=== PATIENT | female | born 1965 | race Caucasian/White ===

== ENCOUNTER 2024-05-30 11:19 | Emergency (ER) | payer MEDICARE ==
[2024-05-30] MEDS ORDERED: Bacitracin Oint 1 GM U/D Packet TOP ONE (11:43)
[2024-05-30] MEDS: Diphtheria,Pertussis(Acell),Tetanus Vaccine 0.5 ML Syringe IM ONE (12:06)
== END 2024-05-30 14:06 | disposition home or self-care (01) ==
LOC: FB.ED 11:19
DX: S52.125A Nondisplaced fracture of head of left radius, initial encounter for closed fracture (principal); S60.222A Contusion of left hand, initial encounter; S50.312A Abrasion of left elbow, initial encounter; S80.212A Abrasion, left knee, initial encounter; Z79.899 Other long term (current) drug therapy; W10.1XXA Fall (on)(from) sidewalk curb, initial encounter
CPT/HCPCS: 73080-LT; 73130-LT; 73562-LT; 90471; 90715; 99284-25

== ENCOUNTER 2024-11-02 18:38 | Inpatient (IN) | payer MEDICARE, OTHER ==
[2024-11-02] MEDS ORDERED: Naloxone 0.4 MG/ML SDV IVPUSH PRN (18:59)
[2024-11-02 19:20] LABS: BASOPHILS ABSOLUTE AUTO 0.1 x10-3/uL (0.0-0.1); BASOPHILS PERCENT AUTO 0.8 % (0.2-1.5); EOSINOPHILS PERCENT AUTO 0.2 % (0.6-8.1); HEMATOCRIT 33.3 % (34.2-48.2); HEMOGLOBIN 10.7 g/dL (11.4-15.5); LYMPHOCYTES ABSOLUTE AUTO 1.3 x10-3/uL (1.0-4.4); LYMPHOCYTES PERCENT AUTO 12.5 % (18.4-52.1); MEAN CORPUSCULAR HEMOGLOBIN 26.3 pg (23.9-33.9); MEAN CORPUSCULAR HGB CONC 32.1 g/dL (31.9-34.8); MEAN CORPUSCULAR VOLUME 81.7 fL (76.7-100.5); MEAN PLATELET VOLUME 8.2 fL (7.1-12.4); MONOCYTES ABSOLUTE AUTO 0.6 x10-3/uL (0.3-1.0); MONOCYTES PERCENT AUTO 5.5 % (4.4-15.7); NEUTROPHILS ABSOLUTE AUTO 8.6 x10-3/uL (1.5-6.3); PLATELET COUNT,PLT 382 x10(3)uL (151-488); RED CELL DISTRIBUTION WIDTH 17.2 % (12.3-16.5); WHITE BLOOD CELL COUNT,WBC 10.5 x10-3/uL (3.0-10.3)
[2024-11-02 19:23] LABS: BLOOD UREA NITROGEN,BUN 18 mg/dL (7-18); CALCIUM 8.8 mg/dL (8.6-10.2); CARBON DIOXIDE,CO2 24 mmol/L (21-32); CHLORIDE,CL 106 mmol/L (100-110); ESTIMATED GFR 64 mL/min (>60); GLUCOSE RANDOM 160 mg/dL (80-116); POTASSIUM,K 3.8 mmol/L (3.5-5.3); SODIUM,NA 143 mmol/L (135-145)
[2024-11-02 19:28] LABS: RED BLOOD CELL COUNT 4.07 x10(6)uL (3.60-5.20)
[2024-11-02 19:29] LABS: A/G RATIO 1.1; ALANINE AMINOTRANSFERASE,ALT 14 U/L (12-36); ALKALINE PHOSPHATASE 189 IU/L (56-112); ASPARTATE AMNIOTRANSFERASE,AST 11 IU/L (5-25); BILIRUBIN TOTAL 0.4 mg/dL (0.1-1.3); MAGNESIUM 2.1 mg/dL (1.8-2.5); PROTEIN TOTAL,TP 7.6 g/dL (6.0-8.0)
[2024-11-02 19:34] LABS: C-REACTIVE PROTEIN 0.6 mg/dL (<0.50); TROPONIN I 9.3 pg/mL (4.0-60.3)
[2024-11-02] MEDS: Morphine 2 MG/ML SYRINGE IVPUSH ONE (19:35)
[2024-11-02] MEDS: Ondansetron 4 MG/2 ML SDV IVPUSH ONE (19:36)
[2024-11-02] MEDS: Sodium Chloride 0.9% 1,000 ML IV SCH (19:40)
[2024-11-02 19:53] LABS: BASE EXCESS VENOUS,POC -3 mmol/L (-2 - 3+); PCO2 VENOUS,POC 36 mmHg (41-51); PH VENOUS,POC 7.39 pH Units (7.32-7.43)
[2024-11-02 20:18] LABS: BILIRUBIN,URINE NEGATIVE (NEGATIVE); GLUCOSE,URINE NORMAL (NORMAL); KETONES,URINE 15 mg/dL (NEGATIVE); LEUKOCYTE ESTERASE,URINE LARGE (NEGATIVE); NITRITE,URINE POSITIVE (NEGATIVE); OCCULT BLOOD,URINE LARGE (NEGATIVE); PROTEIN,URINE 500 mg/dL (NEGATIVE); UROBILINOGEN,URINE NORMAL (NEGATIVE)
[2024-11-02 20:21] LABS: INFLUENZA A NAA NEGATIVE (NEGATIVE); INFLUENZA B NAA NEGATIVE (NEGATIVE)
[2024-11-02 20:21] LABS: COLOR,URINE RED (YELLOW)
[2024-11-02 20:27] LABS: CORONAVIRUS COVID-19 NAA NEGATIVE (NEGATIVE)
[2024-11-02 20:28] LABS: APPEARANCE,URINE CLOUDY (CLEAR)
[2024-11-02 20:31] LABS: BACTERIA,URINE MODERATE (NS); RBC,URINE PACKED (0-5); SQUAMOUS EPITHELIAL CELLS,UR MODERATE (NS,R,O)
[2024-11-02] MEDS: Sodium Chloride 0.9% 1,000 ML IV ONE (20:38)
[2024-11-02] MEDS ORDERED: Acetaminophen 325 MG Tab PO PRN (22:16)
[2024-11-02] MEDS ORDERED: Ondansetron 4 MG/2 ML SDV IV PRN (22:16)
[2024-11-02] MEDS: Morphine 2 MG/ML SYRINGE IVPUSH PRN (23:17)
[2024-11-02] MEDS: cefTRIAXone 2 GM Vial IVPUSH SCH (23:26)
[2024-11-02] MEDS: Doxycycline 100 MG in Sodium Chloride 0.9% 100 ML IV SCH (23:30)
[2024-11-03] MEDS: Pantoprazole 40 MG Vial IVPUSH SCH (00:31)
[2024-11-03] MEDS: Diazepam 2 MG Tab PO PRN (00:31)
[2024-11-03] MEDS: Sodium Chloride 0.9% 10 ML Syringe FLUSH PRN (00:37)
[2024-11-03] MEDS: oxyCODONE 5 MG Tab PO PRN (05:11)
[2024-11-03 06:35] LABS: BASOPHILS ABSOLUTE AUTO 0.1 x10-3/uL (0.0-0.1); EOSINOPHILS ABSOLUTE AUTO 0.1 x10-3/uL (0.0-0.8); EOSINOPHILS PERCENT AUTO 1.4 % (0.6-8.1); HEMATOCRIT 29.6 % (34.2-48.2); HEMOGLOBIN 9.6 g/dL (11.4-15.5); LYMPHOCYTES ABSOLUTE AUTO 2.6 x10-3/uL (1.0-4.4); LYMPHOCYTES PERCENT AUTO 27.2 % (18.4-52.1); MEAN CORPUSCULAR HEMOGLOBIN 26.6 pg (23.9-33.9); MEAN CORPUSCULAR HGB CONC 32.4 g/dL (31.9-34.8); MONOCYTES ABSOLUTE AUTO 0.8 x10-3/uL (0.3-1.0); MONOCYTES PERCENT AUTO 8.3 % (4.4-15.7); NEUTROPHILS ABSOLUTE AUTO 5.9 x10-3/uL (1.5-6.3); NEUTROPHILS PERCENT AUTO 62.1 % (30.8-76.2); PLATELET COUNT,PLT 321 x10(3)uL (151-488); WHITE BLOOD CELL COUNT,WBC 9.4 x10-3/uL (3.0-10.3)
[2024-11-03 06:40] LABS: BLOOD UREA NITROGEN,BUN 11 mg/dL (7-18); BUN/CREATININE RATIO 13.8 (9-20); CALCIUM 8.2 mg/dL (8.6-10.2); CARBON DIOXIDE,CO2 24 mmol/L (21-32); CHLORIDE,CL 108 mmol/L (100-110); CREATININE 0.8 mg/dL (0.55-1.02); EST CRCL DRUG DOSING (CG) 71.81 mL/min; ESTIMATED GFR 84 mL/min (>60); GLUCOSE RANDOM 118 mg/dL (80-116); POTASSIUM,K 3.9 mmol/L (3.5-5.3); SODIUM,NA 142 mmol/L (135-145)
[2024-11-03 06:43] LABS: RED BLOOD CELL COUNT 3.61 x10(6)uL (3.60-5.20)
[2024-11-03] MEDS ORDERED: Celecoxib 100 MG Cap PO PRN (09:10)
[2024-11-03] MEDS ORDERED: Carboxymethylcellulose Sodium 0.5% Ophth Soln 15 ML Bottle EYEBOTH PRN (09:10)
[2024-11-03] MEDS ORDERED: Non-Formulary Medication 1 Each (Lisinopril [Lisinopril] 40 MG Tablet) PO SCH (09:15)
[2024-11-03] MEDS ORDERED: tiZANidine 4 MG Tab PO PRN (09:21)
[2024-11-03] MEDS ORDERED: Diazepam 5 MG Tab PO PRN (09:45)
[2024-11-03] MEDS: Lisinopril 20 MG Tab PO SCH (09:58)
[2024-11-03] MEDS: Carbidopa/Levodopa 25-100 MG Tab PO SCH (09:58)
[2024-11-03] MEDS: atorvaSTATin 40 MG Tab PO SCH (10:20)
[2024-11-03] MEDS: Pantoprazole 40 MG Tab.CR PO SCH (10:20)
[2024-11-03] MEDS: amLODIPine 5 MG Tab PO SCH (10:21)
[2024-11-03] MEDS ORDERED: Carbidopa/Levodopa 25-100 MG Tab PO SCH (12:00)
[2024-11-03] MEDS ORDERED: traZODone 50 MG Tab PO SCH (21:00)
[2024-11-03] MEDS ORDERED: atorvaSTATin 40 MG Tab PO SCH (21:00)
[2024-11-04] MEDS ORDERED: Cyanocobalamin (Vitamin B12) 1,000 MCG Tab PO SCH (09:00)
== END 2024-11-03 12:55 | disposition home or self-care (01) | DRG 57 ==
LOC: FB.ED 18:38 → FB.MS 21:50
PROVIDERS: ADMIT Emergency Medicine; ATTEND Family Medicine
DX: G20.B1 Parkinson's disease with dyskinesia, without mention of fluctuations (principal); M62.838 Other muscle spasm; R26.2 Difficulty in walking, not elsewhere classified; R53.81 Other malaise; R26.89 Other abnormalities of gait and mobility; I10 Essential (primary) hypertension; H54.7 Unspecified visual loss; K21.9 Gastro-esophageal reflux disease without esophagitis; F32.A Depression, unspecified; F41.9 Anxiety disorder, unspecified; E86.0 Dehydration; S42.202D Unspecified fracture of upper end of left humerus, subsequent encounter for fracture with routine healing; M19.91 Primary osteoarthritis, unspecified site; Z98.890 Other specified postprocedural states; Z79.899 Other long term (current) drug therapy
CPT/HCPCS: 0240U; 36415; 51702; 71045; 80048; 80053; 81001; 83605; 83735; 84484; 85025; 86140; 87040; 87077; 87086; 87088; 87186; 93005; 93010; 96361; 96374; 96375; 99285; 99285-25; A9270-GY; J0696; J2270; J2405; J2470; J3490; J7030

== ENCOUNTER 2025-01-07 15:24 | Emergency (ER) | payer MEDICARE, OTHER ==
[2025-01-07] MEDS: Aspirin 81 MG Tab.Chew PO ONE (15:52)
[2025-01-07] MEDS: Metoprolol Tartrate 5 MG/5 ML SDV IVPUSH ONE ×2 (15:53→16:30)
[2025-01-07 15:59] LABS: BASOPHILS ABSOLUTE AUTO 0.1 x10-3/uL (0.0-0.1); BASOPHILS PERCENT AUTO 0.6 % (0.2-1.5); EOSINOPHILS ABSOLUTE AUTO 0.1 x10-3/uL (0.0-0.8); EOSINOPHILS PERCENT AUTO 0.7 % (0.6-8.1); HEMATOCRIT 34.2 % (34.2-48.2); LYMPHOCYTES ABSOLUTE AUTO 2.7 x10-3/uL (1.0-4.4); LYMPHOCYTES PERCENT AUTO 25.2 % (18.4-52.1); MEAN CORPUSCULAR HGB CONC 32.2 g/dL (31.9-34.8); MEAN CORPUSCULAR VOLUME 77.8 fL (76.7-100.5); MEAN PLATELET VOLUME 7.8 fL (7.1-12.4); MONOCYTES ABSOLUTE AUTO 0.8 x10-3/uL (0.3-1.0); NEUTROPHILS ABSOLUTE AUTO 7.2 x10-3/uL (1.5-6.3); NEUTROPHILS PERCENT AUTO 66.5 % (30.8-76.2); PLATELET COUNT,PLT 361 x10(3)uL (151-488); RED CELL DISTRIBUTION WIDTH 16.1 % (12.3-16.5); WHITE BLOOD CELL COUNT,WBC 10.8 x10-3/uL (3.0-10.3)
[2025-01-07 16:02] LABS: BLOOD UREA NITROGEN,BUN 10 mg/dL (7-18); BUN/CREATININE RATIO 12.5 (9-20); CALCIUM 8.2 mg/dL (8.6-10.2); CARBON DIOXIDE,CO2 26 mmol/L (21-32); CHLORIDE,CL 104 mmol/L (100-110); CREATININE 0.8 mg/dL (0.55-1.02); ESTIMATED GFR 84 mL/min (>60); GLUCOSE RANDOM 176 mg/dL (80-116); POTASSIUM,K 3.6 mmol/L (3.5-5.3); SODIUM,NA 139 mmol/L (135-145)
[2025-01-07 16:08] LABS: ALANINE AMINOTRANSFERASE,ALT 7 U/L (12-36); ALBUMIN 3.5 g/dL (3.2-4.6); ALKALINE PHOSPHATASE 187 IU/L (56-112); ASPARTATE AMNIOTRANSFERASE,AST 9 IU/L (5-25); BILIRUBIN TOTAL 0.3 mg/dL (0.1-1.3); PROTEIN TOTAL,TP 7.2 g/dL (6.0-8.0)
[2025-01-07 16:27] LABS: BILIRUBIN,URINE NEGATIVE (NEGATIVE); GLUCOSE,URINE NORMAL (NORMAL); KETONES,URINE NEGATIVE (NEGATIVE); LEUKOCYTE ESTERASE,URINE NEGATIVE (NEGATIVE); NITRITE,URINE POSITIVE (NEGATIVE); OCCULT BLOOD,URINE NEGATIVE (NEGATIVE); PROTEIN,URINE 30 mg/dL (NEGATIVE); UROBILINOGEN,URINE NORMAL (NEGATIVE)
[2025-01-07 16:29] LABS: APPEARANCE,URINE CLOUDY (CLEAR); COLOR,URINE YELLOW (YELLOW)
[2025-01-07 16:33] LABS: BACTERIA,URINE MANY (NS); EPITHELIAL CELLS,URINE MODERATE; RBC,URINE NOT SEEN (0-5)
[2025-01-07] MEDS: Enalaprilat 1.25 MG/ML SDV IVPUSH ONE (17:49)
[2025-01-07] MEDS: cefTRIAXone 1 GM in Sodium Chloride 0.9% 50 ML IV ONE (17:49)
[2025-01-07] MEDS: Carbidopa/Levodopa 25-100 MG Tab PO ONE (20:35)
== END 2025-01-07 23:00 | disposition home or self-care (01) ==
LOC: FB.ED 15:24
DX: N39.0 Urinary tract infection, site not specified (principal); I10 Essential (primary) hypertension; R07.89 Other chest pain; K21.9 Gastro-esophageal reflux disease without esophagitis; Z79.899 Other long term (current) drug therapy
CPT/HCPCS: 71045; 80053; 81001; 84484; 85025; 87086; 87088; 87186; 93005; 93010; 96365; 96375; 96376; 99284; 99285-25; A9270-GY; J0696; J3490

== ENCOUNTER 2025-03-03 13:28 | Emergency (ER) | payer MEDICARE ==
[2025-03-03] MEDS: Cyclobenzaprine 10 MG Tab PO PRN (14:04)
[2025-03-03] MEDS: hydrOXYzine HCl 50 MG/ML SDV IM ONE (14:05)
[2025-03-03] MEDS: HYDROmorphone 2 MG/ML SDV IM PRN (14:05)
[2025-03-03 16:10] LABS: BILIRUBIN,URINE NEGATIVE (NEGATIVE); GLUCOSE,URINE NORMAL (NORMAL); KETONES,URINE NEGATIVE (NEGATIVE); LEUKOCYTE ESTERASE,URINE NEGATIVE (NEGATIVE); NITRITE,URINE POSITIVE (NEGATIVE); OCCULT BLOOD,URINE LARGE (NEGATIVE); PROTEIN,URINE NEGATIVE (NEGATIVE); UROBILINOGEN,URINE NORMAL (NEGATIVE)
[2025-03-03 16:12] LABS: APPEARANCE,URINE SLIGHTLY CLOUDY (CLEAR); COLOR,URINE YELLOW (YELLOW)
[2025-03-03 16:20] LABS: BACTERIA,URINE MANY (NS); RBC,URINE 0-5 (0-5); SQUAMOUS EPITHELIAL CELLS,UR FEW (NS,R,O); WBC,URINE 0-5 (0-5)
[2025-03-03] MEDS: Carbidopa/Levodopa 25-100 MG Tab PO ONE (19:03)
== END 2025-03-03 22:35 | disposition home or self-care (01) ==
LOC: FB.ED 13:28
DX: G20.B1 Parkinson's disease with dyskinesia, without mention of fluctuations (principal); Z79.899 Other long term (current) drug therapy
CPT/HCPCS: 72131; 81001; 87086; 87088; 87186; 96372; 99284; A9270; J1171; J3410

== ENCOUNTER 2025-04-23 14:24 | Emergency (ER) | payer MEDICARE ==
[2025-04-23 14:53] LABS: BASOPHILS ABSOLUTE AUTO 0.1 x10-3/uL (0.0-0.1); BASOPHILS PERCENT AUTO 0.7 % (0.2-1.5); EOSINOPHILS ABSOLUTE AUTO 0.1 x10-3/uL (0.0-0.8); EOSINOPHILS PERCENT AUTO 1.0 % (0.6-8.1); LYMPHOCYTES ABSOLUTE AUTO 3.1 x10-3/uL (1.0-4.4); LYMPHOCYTES PERCENT AUTO 29.8 % (18.4-52.1); MEAN PLATELET VOLUME 7.7 fL (7.1-12.4); MONOCYTES ABSOLUTE AUTO 0.8 x10-3/uL (0.3-1.0); MONOCYTES PERCENT AUTO 7.4 % (4.4-15.7); NEUTROPHILS ABSOLUTE AUTO 6.4 x10-3/uL (1.5-6.3); NEUTROPHILS PERCENT AUTO 61.1 % (30.8-76.2); PLATELET COUNT,PLT 383 x10(3)uL (151-488); RED CELL DISTRIBUTION WIDTH 17.7 % (12.3-16.5); WHITE BLOOD CELL COUNT,WBC 10.5 x10-3/uL (3.0-10.3)
[2025-04-23] MEDS: Ketorolac 30 MG/ML SDV IM ONE (14:54)
[2025-04-23 14:57] LABS: BLOOD UREA NITROGEN,BUN 7 mg/dL (7-18); CARBON DIOXIDE,CO2 28 mmol/L (21-32); CHLORIDE,CL 104 mmol/L (100-110); CREATININE 0.7 mg/dL (0.55-1.02); ESTIMATED GFR 98 mL/min (>60); GLUCOSE RANDOM 158 mg/dL (80-116); POTASSIUM,K 3.7 mmol/L (3.5-5.3); SODIUM,NA 141 mmol/L (135-145)
[2025-04-23 15:02] LABS: A/G RATIO 0.9; ALANINE AMINOTRANSFERASE,ALT 17 U/L (12-36); ASPARTATE AMNIOTRANSFERASE,AST 18 IU/L (5-25); BILIRUBIN TOTAL 0.3 mg/dL (0.1-1.3); PROTEIN TOTAL,TP 7.4 g/dL (6.0-8.0)
[2025-04-23 15:08] LABS: RED BLOOD CELL COUNT 4.13 x10(6)uL (3.60-5.20)
[2025-04-23 16:11] LABS: APPEARANCE,URINE SLIGHTLY CLOUDY (CLEAR); GLUCOSE,URINE NORMAL (NORMAL); OCCULT BLOOD,URINE NEGATIVE (NEGATIVE)
[2025-04-23 16:20] LABS: SQUAMOUS EPITHELIAL CELLS,UR FEW (NS,R,O)
[2025-04-23] MEDS: LORazepam 2 MG/ML SDV IVPUSH ONE (18:15)
== END 2025-04-23 19:33 ==
LOC: FB.ED 14:24
DX: G20.B1 Parkinson's disease with dyskinesia, without mention of fluctuations (principal); N30.01 Acute cystitis with hematuria; I10 Essential (primary) hypertension; K21.9 Gastro-esophageal reflux disease without esophagitis; Z79.899 Other long term (current) drug therapy
CPT/HCPCS: 36415; 51701; 80053; 81001; 83605; 85025; 87040; 87086; 87088; 96361; 96372; 96374; 96375; 99284; A4353; J0696; J1885; J2060; J7030; 87186

== ENCOUNTER 2025-05-26 00:43 | Inpatient (IN) | payer MEDICARE ==
[2025-05-26] MEDS ORDERED: Sodium Chloride 0.9% 10 ML Syringe FLUSH PRN (01:05)
[2025-05-26 01:38] LABS: BLOOD UREA NITROGEN,BUN 16 mg/dL (7-18); CARBON DIOXIDE,CO2 28 mmol/L (21-32); CHLORIDE,CL 106 mmol/L (100-110); CREATININE 0.9 mg/dL (0.55-1.02); ESTIMATED GFR 73 mL/min (>60); GLUCOSE RANDOM 121 mg/dL (80-116); POTASSIUM,K 3.8 mmol/L (3.5-5.3); SODIUM,NA 143 mmol/L (135-145)
[2025-05-26 01:44] LABS: A/G RATIO 1.0; ALANINE AMINOTRANSFERASE,ALT 10 U/L (12-36); ASPARTATE AMNIOTRANSFERASE,AST 15 IU/L (5-25); BILIRUBIN TOTAL 0.4 mg/dL (0.1-1.3); PROTEIN TOTAL,TP 7.7 g/dL (6.0-8.0)
[2025-05-26 01:47] LABS: MEAN PLATELET VOLUME 8.1 fL (7.1-12.4); PLATELET COUNT,PLT 398 x10(3)uL (151-488); RED BLOOD CELL COUNT 4.37 x10(6)uL (3.60-5.20); RED CELL DISTRIBUTION WIDTH 15.7 % (12.3-16.5); WHITE BLOOD CELL COUNT,WBC 16.3 x10-3/uL (3.0-10.3)
[2025-05-26 01:56] LABS: BAND PERCENT MAN 3 % (0-6); LYMPHOCYTES PERCENT MAN 21 % (13-37); MONOCYTES PERCENT MAN 7 % (4-12); SEG NEUTROPHILS PERCENT MAN 69 % (46-82)
[2025-05-26 02:26] LABS: GLUCOSE,URINE NORMAL (NORMAL); OCCULT BLOOD,URINE NEGATIVE (NEGATIVE)
[2025-05-26 02:28] LABS: APPEARANCE,URINE CLEAR (CLEAR)
[2025-05-26 02:36] LABS: AMPHETAMINES SCREEN, URINE NEGATIVE (NEGATIVE); BUPRENORPHINE SCREEN,URINE NEGATIVE (NEGATIVE); METHADONE SCREEN, URINE NEGATIVE (NEGATIVE); METHAMPHETAMINE SCREEN, URINE NEGATIVE (NEGATIVE); OXYCODONE SCREEN,URINE NEGATIVE (NEGATIVE)
[2025-05-26 02:45] LABS: LACTIC ACID 0.7 mmol/L (0.4-2.0)
[2025-05-26] MEDS ORDERED: Sennosides/Docusate Sodium 50-8.6 MG Tab PO PRN (02:58)
[2025-05-26] MEDS ORDERED: Ondansetron 4 MG/2 ML SDV IV PRN (02:58)
[2025-05-26] MEDS ORDERED: Carboxymethylcellulose Sodium 0.5% Ophth Soln 15 ML Bottle EYEBOTH PRN (03:07)
[2025-05-26 06:28] LABS: BASOPHILS ABSOLUTE AUTO 0.1 x10-3/uL (0.0-0.1); BASOPHILS PERCENT AUTO 1.0 % (0.2-1.5); EOSINOPHILS ABSOLUTE AUTO 0.1 x10-3/uL (0.0-0.8); EOSINOPHILS PERCENT AUTO 0.5 % (0.6-8.1); LYMPHOCYTES ABSOLUTE AUTO 2.3 x10-3/uL (1.0-4.4); LYMPHOCYTES PERCENT AUTO 20.2 % (18.4-52.1); MEAN PLATELET VOLUME 7.5 fL (7.1-12.4); MONOCYTES ABSOLUTE AUTO 0.8 x10-3/uL (0.3-1.0); MONOCYTES PERCENT AUTO 7.3 % (4.4-15.7); NEUTROPHILS ABSOLUTE AUTO 8.2 x10-3/uL (1.5-6.3); NEUTROPHILS PERCENT AUTO 71.0 % (30.8-76.2); PLATELET COUNT,PLT 314 x10(3)uL (151-488); RED CELL DISTRIBUTION WIDTH 16.6 % (12.3-16.5); WHITE BLOOD CELL COUNT,WBC 11.6 x10-3/uL (3.0-10.3)
[2025-05-26 06:34] LABS: RED BLOOD CELL COUNT 4.11 x10(6)uL (3.60-5.20)
[2025-05-26] MEDS ORDERED: Non-Formulary Medication 1 Each (Celecoxib [Celecoxib] 200 MG Capsule) PO SCH (09:00)
[2025-05-26] MEDS: Nystatin Topical Powder 15 GM Bottle TOP SCH (09:00)
[2025-05-26 09:36] LABS: BLOOD UREA NITROGEN,BUN 11 mg/dL (7-18); CARBON DIOXIDE,CO2 25 mmol/L (21-32); CHLORIDE,CL 104 mmol/L (100-110); CREATININE 0.8 mg/dL (0.55-1.02); EST CRCL DRUG DOSING (CG) 71.81 mL/min; ESTIMATED GFR 84 mL/min (>60); GLUCOSE RANDOM 205 mg/dL (80-116); POTASSIUM,K 3.6 mmol/L (3.5-5.3); SODIUM,NA 141 mmol/L (135-145)
[2025-05-26] MEDS ORDERED: Naloxone 0.4 MG/ML SDV IVPUSH PRN (11:46)
[2025-05-29 19:24] LABS: THYROXINE FREE 1.2 ng/dL (0.9-1.7)
== END 2025-05-26 13:30 | DRG 542 ==
LOC: FB.ED 00:43 → FB.MS 02:58
PROVIDERS: ADMIT Emergency Medicine; ATTEND Internal Medicine
DX: M48.56XA Collapsed vertebra, not elsewhere classified, lumbar region, initial encounter for fracture (principal); J18.9 Pneumonia, unspecified organism; N39.0 Urinary tract infection, site not specified; M19.91 Primary osteoarthritis, unspecified site; R45.851 Suicidal ideations; G20.B1 Parkinson's disease with dyskinesia, without mention of fluctuations; M48.061 Spinal stenosis, lumbar region without neurogenic claudication; M47.819 Spondylosis without myelopathy or radiculopathy, site unspecified; G35 Multiple sclerosis; H54.7 Unspecified visual loss; F32.A Depression, unspecified; K21.9 Gastro-esophageal reflux disease without esophagitis; F41.8 Other specified anxiety disorders; F41.9 Anxiety disorder, unspecified; R26.89 Other abnormalities of gait and mobility; B37.2 Candidiasis of skin and nail; G89.29 Other chronic pain; I10 Essential (primary) hypertension; Z79.2 Long term (current) use of antibiotics; Z87.81 Personal history of (healed) traumatic fracture; Z98.890 Other specified postprocedural states; Z79.899 Other long term (current) drug therapy
CPT/HCPCS: 36410; 36415; 51702; 70450; 71045; 72128; 72131; 80048; 80053; 80143; 80179; 80307; 81003; 83605; 84439; 84443; 85025; 87040; 87428-QW; 99223; 99284; 99285; A9270-GY; J1650; J2270; J7030

== ENCOUNTER 2025-08-21 01:23 | Inpatient (IN) | payer MEDICARE ==
[2025-08-21 02:59] LABS: BASOPHILS ABSOLUTE AUTO 0.1 x10-3/uL (0.0-0.1); BASOPHILS PERCENT AUTO 0.9 % (0.2-1.5); EOSINOPHILS ABSOLUTE AUTO 0.1 x10-3/uL (0.0-0.8); EOSINOPHILS PERCENT AUTO 1.2 % (0.6-8.1); LYMPHOCYTES ABSOLUTE AUTO 1.8 x10-3/uL (1.0-4.4); LYMPHOCYTES PERCENT AUTO 21.6 % (18.4-52.1); MEAN PLATELET VOLUME 7.9 fL (7.1-12.4); MONOCYTES ABSOLUTE AUTO 0.6 x10-3/uL (0.3-1.0); MONOCYTES PERCENT AUTO 7.3 % (4.4-15.7); NEUTROPHILS ABSOLUTE AUTO 5.7 x10-3/uL (1.5-6.3); NEUTROPHILS PERCENT AUTO 69.0 % (30.8-76.2); PLATELET COUNT,PLT 267 x10(3)uL (151-488); RED BLOOD CELL COUNT 4.54 x10(6)uL (3.60-5.20); RED CELL DISTRIBUTION WIDTH 16.3 % (12.3-16.5); WHITE BLOOD CELL COUNT,WBC 8.3 x10-3/uL (3.0-10.3)
[2025-08-21 03:05] LABS: BLOOD UREA NITROGEN,BUN 12 mg/dL (7-18); CARBON DIOXIDE,CO2 25 mmol/L (21-32); CHLORIDE,CL 107 mmol/L (100-110); CREATININE 0.6 mg/dL (0.55-1.02); ESTIMATED GFR 101 mL/min (>60); GLUCOSE RANDOM 138 mg/dL (80-116); POTASSIUM,K 3.6 mmol/L (3.5-5.3); SODIUM,NA 143 mmol/L (135-145)
[2025-08-21 03:11] LABS: A/G RATIO 1.1; ASPARTATE AMNIOTRANSFERASE,AST 12 IU/L (5-25); BILIRUBIN TOTAL 0.4 mg/dL (0.1-1.3); PROTEIN TOTAL,TP 7.3 g/dL (6.0-8.0)
[2025-08-21 03:12] LABS: ALANINE AMINOTRANSFERASE,ALT < 6 U/L (12-36)
[2025-08-21 05:02] LABS: GLUCOSE,URINE NORMAL (NORMAL); OCCULT BLOOD,URINE NEGATIVE (NEGATIVE)
[2025-08-21 05:04] LABS: APPEARANCE,URINE CLEAR (CLEAR)
[2025-08-21 05:06] LABS: SQUAMOUS EPITHELIAL CELLS,UR FEW (NS,R,O)
[2025-08-21] MEDS ORDERED: Ondansetron 4 MG/2 ML SDV IV PRN (05:53)
[2025-08-21] MEDS ORDERED: Albuterol 0.083% 2.5 MG/3 ML Neb Soln NEB PRN (05:56)
[2025-08-21] MEDS ORDERED: Carboxymethylcellulose Sodium 0.5% Ophth Soln 15 ML Bottle EYEBOTH SCH (09:30)
[2025-08-21] MEDS: Saccharomyces Boulardii (Probiotic) 250 MG Cap PO SCH (10:25)
[2025-08-21] MEDS: Carboxymethylcellulose Sodium 0.5% Ophth Soln 15 ML Bottle EYEBOTH SCH (10:28)
[2025-08-21] MEDS: Iopamidol 755 Mg/ML 100 ML Bottle IV SCH (11:31)
[2025-08-21] MEDS: Ketoconazole 2% Crm 30 GM Tube TOP SCH (21:10)
[2025-08-21] MEDS: Sodium Chloride 0.9% 10 ML Syringe FLUSH PRN (21:25)
[2025-08-22 06:41] LABS: BASOPHILS ABSOLUTE AUTO 0.0 x10-3/uL (0.0-0.1); BASOPHILS PERCENT AUTO 0.6 % (0.2-1.5); EOSINOPHILS ABSOLUTE AUTO 0.2 x10-3/uL (0.0-0.8); EOSINOPHILS PERCENT AUTO 2.3 % (0.6-8.1); LYMPHOCYTES ABSOLUTE AUTO 2.6 x10-3/uL (1.0-4.4); LYMPHOCYTES PERCENT AUTO 31.5 % (18.4-52.1); MEAN PLATELET VOLUME 8.2 fL (7.1-12.4); MONOCYTES ABSOLUTE AUTO 0.7 x10-3/uL (0.3-1.0); MONOCYTES PERCENT AUTO 8.0 % (4.4-15.7); NEUTROPHILS ABSOLUTE AUTO 4.7 x10-3/uL (1.5-6.3); NEUTROPHILS PERCENT AUTO 57.6 % (30.8-76.2); PLATELET COUNT,PLT 229 x10(3)uL (151-488); RED BLOOD CELL COUNT 4.37 x10(6)uL (3.60-5.20); RED CELL DISTRIBUTION WIDTH 16.4 % (12.3-16.5); WHITE BLOOD CELL COUNT,WBC 8.2 x10-3/uL (3.0-10.3)
[2025-08-22 07:12] LABS: A/G RATIO 1.0; ALANINE AMINOTRANSFERASE,ALT 14 U/L (12-36); ASPARTATE AMNIOTRANSFERASE,AST 14 IU/L (5-25); BILIRUBIN TOTAL 0.3 mg/dL (0.1-1.3); BLOOD UREA NITROGEN,BUN 10 mg/dL (7-18); CARBON DIOXIDE,CO2 25 mmol/L (21-32); CHLORIDE,CL 106 mmol/L (100-110); CREATININE 0.6 mg/dL (0.55-1.02); EST CRCL DRUG DOSING (CG) 94.54 mL/min; ESTIMATED GFR 101 mL/min (>60); GLUCOSE RANDOM 121 mg/dL (80-116); POTASSIUM,K 3.6 mmol/L (3.5-5.3); PROTEIN TOTAL,TP 7.0 g/dL (6.0-8.0); SODIUM,NA 143 mmol/L (135-145)
[2025-08-23 06:31] LABS: BASOPHILS ABSOLUTE AUTO 0.1 x10-3/uL (0.0-0.1); BASOPHILS PERCENT AUTO 1.1 % (0.2-1.5); EOSINOPHILS ABSOLUTE AUTO 0.4 x10-3/uL (0.0-0.8); EOSINOPHILS PERCENT AUTO 4.3 % (0.6-8.1); LYMPHOCYTES ABSOLUTE AUTO 2.9 x10-3/uL (1.0-4.4); LYMPHOCYTES PERCENT AUTO 29.6 % (18.4-52.1); MEAN PLATELET VOLUME 7.9 fL (7.1-12.4); MONOCYTES ABSOLUTE AUTO 0.8 x10-3/uL (0.3-1.0); MONOCYTES PERCENT AUTO 8.2 % (4.4-15.7); NEUTROPHILS ABSOLUTE AUTO 5.5 x10-3/uL (1.5-6.3); NEUTROPHILS PERCENT AUTO 56.8 % (30.8-76.2); PLATELET COUNT,PLT 284 x10(3)uL (151-488); RED BLOOD CELL COUNT 4.83 x10(6)uL (3.60-5.20); RED CELL DISTRIBUTION WIDTH 16.4 % (12.3-16.5); WHITE BLOOD CELL COUNT,WBC 9.7 x10-3/uL (3.0-10.3)
[2025-08-23 06:42] LABS: A/G RATIO 1.0; ALANINE AMINOTRANSFERASE,ALT 12 U/L (12-36); ASPARTATE AMNIOTRANSFERASE,AST 11 IU/L (5-25); BILIRUBIN TOTAL 0.4 mg/dL (0.1-1.3); BLOOD UREA NITROGEN,BUN 12 mg/dL (7-18); CARBON DIOXIDE,CO2 26 mmol/L (21-32); CHLORIDE,CL 104 mmol/L (100-110); CREATININE 0.8 mg/dL (0.55-1.02); EST CRCL DRUG DOSING (CG) 70.90 mL/min; ESTIMATED GFR 83 mL/min (>60); GLUCOSE RANDOM 126 mg/dL (80-116); POTASSIUM,K 4.4 mmol/L (3.5-5.3); PROTEIN TOTAL,TP 7.8 g/dL (6.0-8.0); SODIUM,NA 142 mmol/L (135-145)
[2025-08-24 07:10] LABS: BASOPHILS ABSOLUTE AUTO 0.1 x10-3/uL (0.0-0.1); BASOPHILS PERCENT AUTO 0.6 % (0.2-1.5); EOSINOPHILS ABSOLUTE AUTO 0.3 x10-3/uL (0.0-0.8); EOSINOPHILS PERCENT AUTO 3.7 % (0.6-8.1); LYMPHOCYTES ABSOLUTE AUTO 2.3 x10-3/uL (1.0-4.4); LYMPHOCYTES PERCENT AUTO 26.1 % (18.4-52.1); MEAN PLATELET VOLUME 8.3 fL (7.1-12.4); MONOCYTES ABSOLUTE AUTO 0.8 x10-3/uL (0.3-1.0); MONOCYTES PERCENT AUTO 8.6 % (4.4-15.7); NEUTROPHILS ABSOLUTE AUTO 5.4 x10-3/uL (1.5-6.3); NEUTROPHILS PERCENT AUTO 61.0 % (30.8-76.2); PLATELET COUNT,PLT 259 x10(3)uL (151-488); RED BLOOD CELL COUNT 4.68 x10(6)uL (3.60-5.20); RED CELL DISTRIBUTION WIDTH 16.6 % (12.3-16.5); WHITE BLOOD CELL COUNT,WBC 8.9 x10-3/uL (3.0-10.3)
[2025-08-24 07:23] LABS: A/G RATIO 1.0; ALANINE AMINOTRANSFERASE,ALT 10 U/L (12-36); ASPARTATE AMNIOTRANSFERASE,AST 15 IU/L (5-25); BILIRUBIN TOTAL 0.4 mg/dL (0.1-1.3); BLOOD UREA NITROGEN,BUN 13 mg/dL (7-18); CARBON DIOXIDE,CO2 28 mmol/L (21-32); CHLORIDE,CL 104 mmol/L (100-110); CREATININE 0.6 mg/dL (0.55-1.02); EST CRCL DRUG DOSING (CG) 94.54 mL/min; ESTIMATED GFR 101 mL/min (>60); GLUCOSE RANDOM 119 mg/dL (80-116); POTASSIUM,K 4.0 mmol/L (3.5-5.3); PROTEIN TOTAL,TP 7.3 g/dL (6.0-8.0); SODIUM,NA 142 mmol/L (135-145)
[2025-08-24] MEDS: Carboxymethylcellulose Sodium 0.5% Ophth Soln 15 ML Bottle EYEBOTH PRN (08:33)
[2025-08-25 06:49] LABS: BASOPHILS ABSOLUTE AUTO 0.1 x10-3/uL (0.0-0.1); BASOPHILS PERCENT AUTO 0.6 % (0.2-1.5); EOSINOPHILS ABSOLUTE AUTO 0.4 x10-3/uL (0.0-0.8); EOSINOPHILS PERCENT AUTO 3.8 % (0.6-8.1); LYMPHOCYTES ABSOLUTE AUTO 2.5 x10-3/uL (1.0-4.4); LYMPHOCYTES PERCENT AUTO 25.4 % (18.4-52.1); MEAN PLATELET VOLUME 8.2 fL (7.1-12.4); MONOCYTES ABSOLUTE AUTO 0.8 x10-3/uL (0.3-1.0); MONOCYTES PERCENT AUTO 8.6 % (4.4-15.7); NEUTROPHILS ABSOLUTE AUTO 6.1 x10-3/uL (1.5-6.3); NEUTROPHILS PERCENT AUTO 61.6 % (30.8-76.2); PLATELET COUNT,PLT 265 x10(3)uL (151-488); RED BLOOD CELL COUNT 4.67 x10(6)uL (3.60-5.20); RED CELL DISTRIBUTION WIDTH 16.7 % (12.3-16.5); WHITE BLOOD CELL COUNT,WBC 9.8 x10-3/uL (3.0-10.3)
[2025-08-25 06:55] LABS: BLOOD UREA NITROGEN,BUN 15 mg/dL (7-18); CARBON DIOXIDE,CO2 27 mmol/L (21-32); CHLORIDE,CL 105 mmol/L (100-110); CREATININE 0.7 mg/dL (0.55-1.02); EST CRCL DRUG DOSING (CG) 81.03 mL/min; ESTIMATED GFR 98 mL/min (>60); GLUCOSE RANDOM 124 mg/dL (80-116); POTASSIUM,K 4.0 mmol/L (3.5-5.3); SODIUM,NA 143 mmol/L (135-145)
== END 2025-08-25 13:15 | disposition home health service (06) | DRG 689 ==
LOC: FB.ED 01:23 → FB.MS 05:28 → OBSVTOIN 09:42
PROVIDERS: ADMIT Emergency Medicine; ATTEND Internal Medicine
DX: N30.00 Acute cystitis without hematuria (principal); N30.01 Acute cystitis with hematuria; J18.9 Pneumonia, unspecified organism; R53.81 Other malaise; J96.01 Acute respiratory failure with hypoxia; I16.0 Hypertensive urgency; G20.B1 Parkinson's disease with dyskinesia, without mention of fluctuations; H54.7 Unspecified visual loss; F41.9 Anxiety disorder, unspecified; F32.A Depression, unspecified; G35.D Multiple sclerosis, unspecified; E86.0 Dehydration; B96.20 Unspecified Escherichia coli [E. coli] as the cause of diseases classified elsewhere; Z96.642 Presence of left artificial hip joint; R53.1 Weakness; Z79.891 Long term (current) use of opiate analgesic; Z79.2 Long term (current) use of antibiotics; I10 Essential (primary) hypertension; K21.9 Gastro-esophageal reflux disease without esophagitis; Z79.899 Other long term (current) drug therapy
CPT/HCPCS: 36415; 71045; 71275; 71275-26; 80048; 80053; 81001; 83605; 83735; 84484; 85025; 85379; 86140; 87040; 87086; 87088; 87186; 87428-QW; 93005; 93010; 94150; 94640; 96360; 96361; 96365; 96375; 97161-GP; 97165-GO; 99222; 99231; 99232; 99238; 99285; 99285-25; A9270-GY; G0378; J0696; J1271; J1650; J1920; J2470; J7030; J7040; Q9967